=== PATIENT | male | born 1995 | race Caucasian/White ===

== ENCOUNTER → 2017-04-20 10:33 | Outpatient (CLI) | payer OTHER, SELFPAY ==
--- NOTE | 2017-04-20 11:00 | ECHOD_ITS ---
Reason For Study: Arryhthmia Procedure This was a 2D Doppler, Color Flow transthoracic echocardiogram. Exam performed in department. Left Ventricle Normal LV size. Left ventricular systolic function is normal. The estimated ejection fraction is 60 %. No regional wall motion abnormalities noted. Right Ventricle Normal RV size. Normal systolic function. Atria Normal left atrium. Normal right atrium. Mitral Valve Normal mitral valve. Tricuspid Valve Normal tricuspid valve. Mild (1+) tricuspid valve insufficiency. Pulmonary artery systolic pressure is 25 mmHg. Aortic Valve Normal aortic valve. Trisinus/trileaflet aortic valve. Pulmonic Valve Normal pulmonic valve. Great Vessels Normal aortic root. The pulmonary artery is normal size. Normal inferior vena cava. Pericardium/Pleural No pericardial effusion. MMode/2D Measurements & Calculations LVIDd: 4.4 cm IVSd: 1.1 cm Ao root diam: 3.1 cm LVIDs: 2.6 cm LVPWd: 1.00 cm LA dimension: 2.7 cm RVDd: 4.0 cm FS: 41.2 % LAV(MOD-bp): 27.2 ml LA A4 area: 11.9 cm2 RA A4 area: 13.8 cm2 LAV(MOD-bp) Indexed: 12.4 ml/m2 LAV(MOD-sp2): 28.5 ml LAV(MOD-sp4): 20.9 ml Doppler Measurements & Calculations MV E max adan: 83.8 cm/sec Lat Peak E' Adan: 18.3 cm/sec Med Peak E' Adan: 11.4 cm/sec MV A max adan: 82.4 cm/sec E/E' lat: 4.6 E/E' med: 7.3 MV E/A: 1.0 Ao V2 max: 124.1 cm/sec LV V1 max: 95.8 cm/sec PA V2 max: 103.3 cm/sec Ao max P.2 mmHg LV V1 max P.7 mmHg Ao V2 mean: 84.1 cm/sec Ao mean P.2 mmHg Ao V2 VTI: 20.0 cm TR max adan: 231.7 cm/sec TR max P.5 mmHg Interpretation Summary Normal LV size. Left ventricular systolic function is normal. The estimated ejection fraction is 60 %. Mild (1+) tricuspid valve insufficiency. Structurally normal valves. Ordering Physician: Hayes Villanueva Referring Physician: Aldo Amaya Performed By: Bhumi Walters, JUNI, RVT
--- NOTE | 2017-04-20 17:53 | STRESSREP ---
Stress Test Report Exercise stress test. 21 year old man with a history of palpitations. Stress protocol: Resting EKG demonstrates normal sinus rhythm with rate of 79 bpm normal intervals are noted. The patient exercised according to the regular [place] protocol for total duration of 12 minutes and 55 seconds completing 55 seconds into stage V of the [place] protocol the maximum heart rate attained was 193 bpm which was 96% of the maximum predicted heart rate. The maximum workload was 14.7 metabolic equivalents. The patient maintained sinus rhythm throughout the recording. At rest there were no ST or T-wave changes noted to suggest ischemia at peak exercise upsloping ST changes only were noted with no meet the criteria for ischemia no clinical angina was noted the test was terminated due to leg fatigue. The resting blood pressure was 122/82 with a peak blood pressure 192/56 mmHg. The rate pressure product was 34,700. Conclusion: Exercise stress test with no EKG criteria for ischemia. Excellent functional aerobic capacity. No arrhythmias noted.
== END ==
PROVIDERS: Family Provider Pediatrics; PCP Pediatrics; Visit Provider Internal Medicine Cardiovascular Disease
DX: R00.2 Palpitations (principal)
CPT/HCPCS: 93017; 93306

== ENCOUNTER 2021-03-10 10:34 | Emergency (ER) | payer OTHER, SELFPAY ==
[2021-03-10 10:35] VITALS: BP 152/99; PULSE 101; RESP 18; TEMP 35.9; O2SAT 100; BMI 31.6
--- NOTE | 2021-03-10 10:57 | EKG12_ITS ---
Test Reason : ALLERGIC REACTION Blood Pressure : / mmHG Vent. Rate : 086 BPM Atrial Rate : 086 BPM P-R Int : 136 ms QRS Dur : 080 ms QT Int : 350 ms P-R-T Axes : 044 077 053 degrees QTc Int : 418 ms Normal sinus rhythm Normal ECG Confirmed by INEZ LANDA, MO ([id number]), general expeditor FARAZ MASON ([id number]) on 03/15/2021 9:28:53 AM Referred By: BB Confirmed By:MO WILEY MD
--- NOTE | 2021-03-10 10:58 | EDS_ITS ---
HPI History of Present Illness Chief Complaint: Allergic Reaction Detail of Chief Complaint: sob w/ low pulse ox Informant: patient Onset/Context/Timing Onset: Today Context: Gradual Onset Timing: Intermittent (once) and Lasts (few seconds) Current Severity: Gone Maximum Severity: Moderate Worsened by: nothing Relieved by: nothing in particular Associated Symptoms Associated Symptoms: none; no CP, palpitations, lightheadedness, or recent leg swelling Narrative Narrative: Patient has had Covid for about 12 days now, from when his symptoms started, he tested positive with home rapid tests that were not proctored. He states he has been feeling poorly along with cough, it has been a little better recently, and he has had no dyspnea until today when he states he was in the car and he felt very briefly short of breath, and and as a result he checked his pulse ox with his own portable pulse oximeter, and it was reading 82%, he states the pulse was around 110 or so. States he was feeling anxious as a result of this, but does not think that anxiety attack provoked any of this. Denies any associated chest discomfort or lightheadedness or palpitations. He states it only lasted a second or so. States he has chronic insomnia for which he takes doxepin, and last night he could not sleep so he talked to his doctor and he advised that he take Valium 2 mg which he did, it made him feel funny and more anxious, and he is afraid maybe that is related. That was 12 hours ago from now or so. He does not feel funny for the medication anymore since waking up this morning. [facility] Medical History Acne vulgaris Anxiety Juvenile osteochondrosis of both tibial tuberosities Sleep disturbance Supraventricular tachycardia Home Medications alprazolam 0.5 mg tablet 0.5 mg PO TID PRN tab 03/27/17 [History Last Taken Unknown] doxepin 100 mg capsule 100 mg PO QHS 03/27/17 [History Last Taken Unknown] ibuprofen 200 mg capsule 200 mg PO BID PRN cap 03/27/17 [History Last Taken Unknown] minocycline 50 mg capsule 50 mg PO BID cap 03/27/17 [History Last Taken Unknown] Allergy/AdvReac Type Severity Reaction Status Date / Time No Known Allergies Allergy Unverified 03/10/21 10:38 Family History Sister Heart disease congenital VSD and Pulmonary Valve stenosis Valvuloplasty Uncle Heart disease two uncles with SVT Grandfather Heart disease VSD Surgical History History of tonsillectomy and adenoidectomy History of wisdom tooth extraction Social History Smoking Status: Never smoker alcohol intake: never substance use type: does not use caffeine: No (Quit 3 months ago) ROS ROS ED Constitutional Constitutional ED: Reports body ache(s), chills, fever(s) and malaise Eyes Eyes: Denies change in vision or diplopia ENT ENT ED: Denies rhinorrhea or sore throat Cardiovascular Cardiovascular: Denies chest pain or palpitations Respiratory/Chest Respiratory/Chest: Reports as per HPI and cough; Denies chest congestion or chest tightness Gastrointestinal Gastrointestinal: Denies abdominal pain, nausea or vomiting Genitourinary Genitourinary ED: Denies dysuria or hematuria Musculoskeletal Musculoskeletal: Reports myalgias; Denies back pain or neck pain Integumentary Denies abscess or rash Neurologic Neurologic: Denies headache(s), paresthesias or weakness Psychiatric Psychiatric: Denies anxiety or suicidal thoughts EXAM Physical Exam Const Vital Signs: 03/10/21 10:35 03/10/21 11:08 Temperature 96.7 F L Temperature Source Temporal Pulse Rate 101 H Respiratory Rate 18 Respiratory Effort Normal Non-Labored Respiratory Depth Normal Respiratory Pattern Normal Blood Pressure 152/99 H Blood Pressure Mean 116 Pulse Ox 100 Oxygen Delivery Method Room Air Positive well nourished and well developed Constitutional Narrative: Well-appearing NAD. Conversive in full sentences. General Appearance ED: well developed and NAD HEENT Reports moist mucous membranes normocephalic and atraumatic Eyes PERRL and EOMs intact bilaterally Neck full ROM and supple Resp normal respiratory effort and clear to auscultation bilaterally Cardio regular rate, regular rhythm and no murmurs Rate: Negative for tachycardic GI non-tender and non-distended Auscultation: normoactive bowel sounds Palpation: soft Back/Spine no CVA tenderness General Back: other FROM Extremity normal to inspection General Extremety ED: Negative for edema, pulses abnormal or tenderness General Extremity: Negative for edema or pulses abnormal Neuro oriented x3, CN's II-XII intact bilaterally and no sensory deficits noted Sensorium / Orientation: awake and alert Motor Exam: strength 5/5 throughout Skin no rashes or lesions noted and no wounds MDM MDM MDM Narrative Medical decision making narrative: During my interview/evaluation the patient's pulse oximetry was 98-99% the entire time with an excellent waveform throughout. During this I had him put his home pulse oximeter on the same hand different finger, and it was reading 95-96 with good pulses and similar heart rate reading, and occasionally 98. We ambulated him, he did not drop below 98-99% and did not have dyspnea or any other symptoms with walking. With such brief symptoms, I do not think this is indicative of a pulmonary embolus, he does not have a resting tachycardia right now, he is in the 80s. However when he put his pulse oximeter on and started watching it, suddenly his pulse increased to 105- 110, with a normal rhythm on the monitor. In my opinion this is likely indicating anxiety. Patient admitted several times that he has an anxiety issue that has been ongoing for most of his life. His chest x-ray is unremarkable. His vital signs are excellent as noted. Given that he is not a candidate for monoclonal antibody infusion due to the fact that he has been symptomatic for more than 10 days, I see no point in repeating his positive home Covid test. Radiography Diagnostic Testing: Clinical Impression(s) from Imaging Studies Chest X-Ray 03/10/21 11:10 IMPRESSION: Normal x-ray examination of the chest. Electronically Signed: Brandt Jay MD at 11:26 EST , Service support , EKG Initial EKG: Attestation: I personally reviewed and interpreted this EKG as follows: Interpretation: Sinus Rhythm (86) and No Acute Injury Pattern Comments: Normal EKG. No S1Q3T3 pattern. Discharge Plan Triage Chief Complaint: Allergic Reaction ED Provider: Maximilian Iverson Dx/Rx/DC Orders Clinical Impression: COVID-19 Instructions: Coronavirus Disease 2019 (COVID-19): Caring for Yourself or Others Prescriptions: No Action doxepin 100 mg capsule 100 mg PO QHS RF: 0 alprazolam [Xanax] 0.5 mg tablet 0.5 mg PO TID PRNRF: 0 minocycline [Minocin] 50 mg capsule 50 mg PO BID RF: 0 ibuprofen 200 mg capsule 200 mg PO BID PRNRF: 0 Primary Care Provider: Aldo Amaya Referrals: Aldo Amaya DO [Primary Care Provider] - As Needed Activity Restrictions/Additional Instructions: Try to get a home portable pulse oximeter and closely watch your oxygen levels periodically. If you stay below 90% for more than a minute or so, and/or you are feeling like your breathing is getting worse, return to the emergency department for further evaluation. Disposition Disposition: Home, Self Care
[2021-03-10 11:07] VITALS: O2SAT 97
[2021-03-10 11:08] VITALS: O2SAT 98
--- NOTE | 2021-03-10 11:10 | RAD_ITS ---
STUDY: X-RAY CHEST REASON FOR EXAM: Male, 25 years old. Transient sob, covid TECHNIQUE: Single AP portable view of the chest. COMPARISON: None. FINDINGS: EKG electrodes are seen. The lungs are clear and expanded. There is no demonstrated pleural abnormality. Normal size heart. Normal mediastinum and lisa. Normal visualized pulmonary arteries. Normal visualized aortic arch and descending thoracic aorta. Normal visualized thoracic spine. Normal visualized ribs, clavicles, and shoulders. There is no demonstrated abnormality of the visualized soft tissue structures of the upper abdomen. RAD/Chest 1 View (Portable) IMPRESSION: Normal x-ray examination of the chest. Electronically Signed: Brandt Jay MD at 11:26 EST , Service support ,
== END 2021-03-10 11:59 | disposition home or self-care (01) ==
LOC: ED 11:55
PROVIDERS: Emergency Provider Emergency Medicine; PCP Pediatrics
DX: U07.1 COVID-19 (principal); F51.04 Psychophysiologic insomnia; F41.9 Anxiety disorder, unspecified; Z79.899 Other long term (current) drug therapy
CPT/HCPCS: 71045; 93005; 99284